=== PATIENT | male | born 1960 | race Caucasian/White ===

== ENCOUNTER 2019-01-20 12:04 | Emergency (ER) | payer BC, OTHER ==
[~2019-01-20] VITALS: Ht 170.2 cm; Wt 73.7 kg
--- NOTE | 2019-01-20 12:26 | NUR ---
c-collar applied to pt
[2019-01-20 13:49] VITALS: BP 134/87
[2019-01-20] MEDS ORDERED: ibuprofen tablet 400 MG TABLET PO ONE (13:55)
[2019-01-20] MEDS ORDERED: acetaminophen 325mg tablet PO ONE (13:55)
== END 2019-01-20 14:06 | disposition home or self-care (01) ==
LOC: ER 12:05
DX: S06.0X9A Concussion with loss of consciousness of unspecified duration, initial encounter (principal); S19.9XXA Unspecified injury of neck, initial encounter; Z88.8 Allergy status to other drugs, medicaments and biological substances; Z88.1 Allergy status to other antibiotic agents; V43.52XA Car driver injured in collision with other type car in traffic accident, initial encounter; Y93.89 Activity, other specified; Y92.89 Other specified places as the place of occurrence of the external cause; Y99.8 Other external cause status
CPT/HCPCS: 70450; 72125; 73110; 73140; 99284

== ENCOUNTER 2021-11-02 14:18 | Outpatient (CLI) | payer OTHER ==
[~2021-11-02] VITALS: Ht 170.2 cm; Wt 71.7 kg
[2021-11-02] MEDS ORDERED: OMEP20TA23 PO (15:27)
[2021-11-02 15:47] LABS: BASOPHILS % (AUTO) 0.8 % (0-1); EOSINOPHILS # (AUTO) 0.1 X10'3 (0-0.9); EOSINOPHILS % (AUTO) 1.6 % (0-6); LYMPHOCYTES # (AUTO) 1.5 X10'3 (1.1-4.8); LYMPHOCYTES % (AUTO) 29.9 % (21-51); MEAN CORPUSCULAR HEMOGLOBIN 32.1 PG (27.0-31.0); MEAN CORPUSCULAR HGB CONC 34.1 g/dL (33.0-36.5); MEAN CORPUSCULAR VOLUME 94.3 FL (78-98); MEAN PLATELET VOLUME 7.2 FL (7.4-10.4); MONOCYTES # (AUTO) 0.5 X10'3 (0-0.9); MONOCYTES % (AUTO) 10.6 % (2-12); NEUTROPHILS # (AUTO) 2.9 X10'3 (1.8-7.7); NEUTROPHILS % (AUTO) 57.1 % (42-75); PRE OP HEMATOCRIT 45.6 % (42.0-52.0); PRE OP HEMOGLOBIN 15.5 g/dL (14.0-17.9); PRE OP PLATELET COUNT 258 X10'3 (140-440); RED BLOOD COUNT 4.84 X10'6 (4.70-6.10); RED CELL DISTRIBUTION WIDTH 13.8 % (11.5-14.5)
[2021-11-02 16:04] LABS: ALBUMIN 3.7 G/DL (3.4-5.0); ALBUMIN/GLOBULIN RATIO 1.2 (1.1-1.5); ALKALINE PHOSPHATASE 77 IU/L (46-116); BLOOD UREA NITROGEN 21 MG/DL (7-18); BUN/CREATININE RATIO 18.3 (5.4-32.0); CALCIUM 9.1 MG/DL (8.5-10.1); CHLORIDE 108 MMOL/L (99-107); CREATININE 1.15 MG/DL (0.60-1.10); PRE OP ALT 31 U/L (30-65); PRE OP ANION GAP 11 (8-16); PRE OP AST 21 U/L (10-37); PRE OP BILIRUB, TOTAL 0.2 MG/DL (0.0-1.0); PRE OP GLUCOSE 97 MG/DL (70-104); PRE OP POTASSIUM 4.4 MMOL/L (3.4-5.1); PRE OP SODIUM 145 MMOL/L (135-145); TOTAL CARBON DIOXIDE 26.5 MMOL/L (24-32); TOTAL PROTEIN 6.7 G/DL (6.4-8.2); eGFR 65 ML/MIN
[2021-11-08] MEDS ORDERED: cefazolin/dext.iso 2gm/50ml 50 ML IV ONE (10:00)
[2021-11-09] MEDS ORDERED: ringers solution, lacted 1,000 ML IV SCH (05:00)
[2021-11-09] MEDS ORDERED: famotidine 20mg tablet PO ONE (05:30)
[2021-11-09] MEDS ORDERED: cefazolin/dext.iso 2gm/50ml IV ONE (05:30)
== END 2021-11-02 14:20 | disposition home or self-care (01) ==
LOC: LAB 14:18 → EDSTATUS 11-09 14:15
PROVIDERS: ATTEND Surgery
DX: Z01.818 Encounter for other preprocedural examination (principal); K40.20 Bilateral inguinal hernia, without obstruction or gangrene, not specified as recurrent; K42.9 Umbilical hernia without obstruction or gangrene; Z20.822 Contact with and (suspected) exposure to COVID-19
CPT/HCPCS: 36415; 80053; 85025; 93005; U0003; U0005; J0690; J7120

== ENCOUNTER 2021-12-07 11:08 | Day surgery (SDC) | payer OTHER ==
[2021-11-30 14:51] LABS: BASOPHILS % (AUTO) 0.6 % (0-1); EOSINOPHILS # (AUTO) 0.1 X10'3 (0-0.9); EOSINOPHILS % (AUTO) 1.1 % (0-6); LYMPHOCYTES # (AUTO) 1.5 X10'3 (1.1-4.8); LYMPHOCYTES % (AUTO) 28.7 % (21-51); MEAN CORPUSCULAR HEMOGLOBIN 32.7 PG (27.0-31.0); MEAN CORPUSCULAR HGB CONC 35.1 g/dL (33.0-36.5); MEAN CORPUSCULAR VOLUME 93.1 FL (78-98); MEAN PLATELET VOLUME 7.1 FL (7.4-10.4); MONOCYTES # (AUTO) 0.5 X10'3 (0-0.9); MONOCYTES % (AUTO) 10.4 % (2-12); NEUTROPHILS % (AUTO) 59.2 % (42-75); PRE OP HEMATOCRIT 46.6 % (42.0-52.0); PRE OP HEMOGLOBIN 16.4 g/dL (14.0-17.9); PRE OP PLATELET COUNT 284 X10'3 (140-440); RED BLOOD COUNT 5.01 X10'6 (4.70-6.10); RED CELL DISTRIBUTION WIDTH 13.5 % (11.5-14.5)
[2021-11-30 15:03] LABS: ALBUMIN 4.2 G/DL (3.4-5.0); ALBUMIN/GLOBULIN RATIO 1.2 (1.1-1.5); ALKALINE PHOSPHATASE 61 IU/L (46-116); BLOOD UREA NITROGEN 18 MG/DL (7-18); BUN/CREATININE RATIO 16.7 (5.4-32.0); CALCIUM 9.5 MG/DL (8.5-10.1); CHLORIDE 104 MMOL/L (99-107); CREATININE 1.08 MG/DL (0.60-1.10); PRE OP ALT 35 U/L (30-65); PRE OP ANION GAP 13 (8-16); PRE OP AST 22 U/L (10-37); PRE OP BILIRUB, TOTAL 0.4 MG/DL (0.0-1.0); PRE OP GLUCOSE 80 MG/DL (70-104); PRE OP POTASSIUM 4.4 MMOL/L (3.4-5.1); PRE OP SODIUM 142 MMOL/L (135-145); TOTAL CARBON DIOXIDE 25.5 MMOL/L (24-32); TOTAL PROTEIN 7.6 G/DL (6.4-8.2); eGFR 70 ML/MIN
[2021-12-07] VITALS (13 sets, daily range): BP systolic 94–153; BP diastolic 52–101
[~2021-12-07] VITALS: Ht 175.3 cm; Wt 71.9 kg
[~2021-12-07 11:08] MED LIST: OMEP20TA23 PO; cefazolin/dext.iso 2gm/50ml IV ONE; famotidine 20mg tablet PO ONE; ringers solution, lacted 1,000 ML IV SCH
[2021-12-07] MEDS ORDERED: ringers solution, lacted 1,000 ML IV SCH (11:20)
[2021-12-07] MEDS ORDERED: morphine 2 MG/ML inj. syringe IV PRN (11:20)
[2021-12-07] MEDS ORDERED: fentaNYL/PF 50MCG/1 ML 2ML syringe IV PRN (11:20)
[2021-12-07] MEDS ORDERED: hydrALAZINE 20mg/ml inj. IV PRN (11:20)
[2021-12-07] MEDS ORDERED: morphine 4 MG/ML inj SYRINge IV PRN (11:20)
[2021-12-07] MEDS ORDERED: labetalol 20mg/4ml (5mg/ml) syringe IV PRN (11:20)
[2021-12-07] MEDS ORDERED: ondansetron/PF 4mg/2ml inj IV PRN (11:20)
[2021-12-07] MEDS ORDERED: LIDOcaine 1% (10mg/ml)w/preservative inj. 20ml MDV ONE (11:47)
[2021-12-07] MEDS ORDERED: BUPIVAcaine 0.5% inj/PF 30 ML ONE (11:47)
[2021-12-07] MEDS ORDERED: dexamethasone sod phosphate 10mg/ml inj ONE (12:10)
[2021-12-07] MEDS ORDERED: neostigmine methylsulfate 1 MG/ML 10ml vial ONE (12:10)
[2021-12-07] MEDS ORDERED: sevoflurane 250ml liquid IH ONE (12:10)
[2021-12-07] MEDS ORDERED: midazolam 1 mg/ML 2ml injection ONE (12:20)
[2021-12-07] MEDS ORDERED: FENTANYL CITRATE/PF 50 MCG/1 ML VIAL ONE (12:20)
[2021-12-07] MEDS ORDERED: LIDOcaine 2% (20mg/ml) 5ml vial ONE (12:28)
[2021-12-07] MEDS ORDERED: propofol inj 20 ML IV ONE (12:28)
[2021-12-07] MEDS ORDERED: rocuronium 10mg/ml inj IV ONE (12:28)
[2021-12-07] MEDS ORDERED: ondansetron/PF 4mg/2ml inj ONE (12:29)
[2021-12-07] MEDS ORDERED: glycopyrrolate 0.2mg/ml inj ONE (12:33)
--- NOTE | 2021-12-07 13:28 | NUR ---
Received from OR via , accompanied by Anesthesiologist DR CHANEL and report given by Anesthesiolgist. AWAKENS TO VOICE. VITALS STABLE. DRESSINGS DI. ALIS PAIN. ABD SOFT.
[2021-12-07] MEDS ORDERED: HYDROcodone/acetaminophen 5mg/325mg tablet PO PRN (13:30)
[2021-12-07] MEDS: fentaNYL/PF 50MCG/1 ML 2ML syringe IV PRN ×2 (14:21→15:13)
[2021-12-07] MEDS ORDERED: acetaminophen 1,000mg/100ml IV 100 ML IV ONE (14:35)
--- NOTE | 2021-12-07 16:38 | NUR ---
AWAKE AND ORIENTED. VITALS STABLE. DRESSINGS DI. STATES PAIN IMPROVING. HOME WITH HIS AT THHIS TIME.
== END 2021-12-07 16:38 | disposition home or self-care (01) ==
LOC: PAS 11:08
PROVIDERS: ATTEND Surgery
DX: K40.90 Unilateral inguinal hernia, without obstruction or gangrene, not specified as recurrent (principal); K42.9 Umbilical hernia without obstruction or gangrene; E83.119 Hemochromatosis, unspecified; Z20.822 Contact with and (suspected) exposure to COVID-19; Z79.899 Other long term (current) drug therapy; Z98.890 Other specified postprocedural states; Z72.89 Other problems related to lifestyle; Z81.8 Family history of other mental and behavioral disorders
CPT/HCPCS: 36415; 49585; 49650; 80053; 82948; 85025; C1781; C9803; J0131; J0690; J1100; J2250; J2405; J2704; J2710; J3010; J3490; J7030; J7120; S0020; S2900; U0003; U0005; Z7506; Z7508; Z7512; A4215; A4618

== ENCOUNTER 2023-01-07 02:36 | Emergency (ER) | payer OTHER ==
[~2023-01-07] VITALS: Ht 170.2 cm; Wt 68.2 kg
[~2023-01-07 02:36] MED LIST changes: -cefazolin/dext.iso 2gm/50ml IV ONE; -famotidine 20mg tablet PO ONE; -ringers solution, lacted 1,000 ML IV SCH
[2023-01-07] MEDS ORDERED: ondansetron/PF 4mg/2ml inj IV ONE (03:50)
[2023-01-07] MEDS ORDERED: pantoprazole 40mg IV 80 MG in normal saline 100ml IV soln 100 ML IV ONE (03:50)
[2023-01-07] MEDS ORDERED: normal saline 1000ML IV soln IVB ONE (03:50)
[2023-01-07 04:10] LABS: BASOPHILS % (AUTO) 0.1 % (0-1); EOSINOPHILS % (AUTO) 0.2 % (0-6); HEMATOCRIT 46.6 % (42.0-52.0); HEMOGLOBIN 15.8 g/dl (14.0-17.9); LYMPHOCYTES # (AUTO) 0.6 X10'3 (1.1-4.8); MEAN CORPUSCULAR HEMOGLOBIN 31.6 PG (27.0-31.0); MEAN CORPUSCULAR VOLUME 93.1 FL (78-98); MEAN PLATELET VOLUME 7.3 FL (7.4-10.4); MONOCYTES # (AUTO) 0.5 X10'3 (0-0.9); MONOCYTES % (AUTO) 6.3 % (2-12); NEUTROPHILS # (AUTO) 6.8 X10'3 (1.8-7.7); NEUTROPHILS % (AUTO) 85.4 % (42-75); PLATELET COUNT 288 X10'3 (140-440); RED BLOOD COUNT 5.01 X10'6 (4.70-6.10); RED CELL DISTRIBUTION WIDTH 13.8 % (11.5-14.5)
[2023-01-07] MEDS: pantoprazole 40MG/NS 100ML BAG 100 ML IV SCH ×2 (04:11→04:20)
[2023-01-07 04:20] LABS: ALANINE AMINOTRANSFERASE 25 U/L (12-78); ALBUMIN 3.9 G/DL (3.4-5.0); ALBUMIN/GLOBULIN RATIO 1.2 (1.1-1.5); ALKALINE PHOSPHATASE 74 IU/L (46-116); ANION GAP 11 (8-16); ASPARTATE AMINO TRANSFERASE 24 U/L (10-37); BILIRUBIN,TOTAL 0.7 MG/DL (0.1-1.0); BLOOD UREA NITROGEN 14 MG/DL (7-18); BUN/CREATININE RATIO 13.2 (10.0-20.0); CALCIUM 9.2 MG/DL (8.5-10.1); CHLORIDE 103 MMOL/L (99-107); CREATININE 1.06 MG/DL (0.60-1.10); GLUCOSE 120 MG/DL (70-104); LIPASE 93 U/L (73-393); POTASSIUM 4.1 MMOL/L (3.5-5.1); SODIUM 141 MMOL/L (135-145); TOTAL PROTEIN 7.2 G/DL (6.4-8.2); eGFR 71 ML/MIN
[2023-01-07 05:20] LABS: CLARITY,URINE CLEAR (Clear); COLOR,URINE YELLOW (Yellow); GLUCOSE, URINE NEGATIVE (Neg); KETONES,URINE >=80 mg/dl (Neg); LEUKOCYTE ESTERASE ,URINE NEGATIVE (Neg); NITRITES, URINE NEGATIVE (Neg); OCCULT BLOOD,URINE NEGATIVE (Neg); PH,URINE 6.5 (4.8-8.0); PROTEIN,URINE NEGATIVE (Neg); UROBILINOGEN,URINE 0.2 E.U/dL (0.2-1.0)
[2023-01-07 05:26] LABS: UA COLLECTION TYPE URINAL
[2023-01-07] MEDS ORDERED: magnesium citrate 296ml oral solution PO ONE (05:30)
[2023-01-07 05:41] VITALS: BP 145/76
== END 2023-01-07 05:47 | disposition home or self-care (01) ==
LOC: ER 02:37
DX: R10.9 Unspecified abdominal pain (principal); R11.10 Vomiting, unspecified; K59.00 Constipation, unspecified; Z88.1 Allergy status to other antibiotic agents
CPT/HCPCS: 36415; 74018; 80053; 81003; 83690; 85025; 96365; 96375; 99284; C9113; J2405; J7030